=== PATIENT | female | born 1975 | race African-American/Black ===

== ENCOUNTER → 2016-06-11 | Outpatient (CLI) | payer OTHER | END | disposition home or self-care (01) | LOC: CFH 13:21 → EDSTATUS 13:30 | PROVIDERS: ATTEND Family Medicine | DX: R59.1 Generalized enlarged lymph nodes (principal) | CPT/HCPCS: 76536 ==

== ENCOUNTER → 2016-06-29 | Outpatient (CLI) | payer OTHER ==
[~2016-06-29] MED LIST: OMNIPAQUE 350 MG/ML, 100ML BOTTLE ONE
== END | disposition home or self-care (01) ==
LOC: CFH 09:38
PROVIDERS: ATTEND Family Medicine
DX: R59.1 Generalized enlarged lymph nodes (principal); J32.8 Other chronic sinusitis
CPT/HCPCS: 70491; Q9967

== ENCOUNTER → 2016-07-23 | Outpatient (CLI) | payer OTHER | END | disposition home or self-care (01) | LOC: CFH 14:08 | PROVIDERS: ATTEND Family Medicine | DX: Z12.31 Encounter for screening mammogram for malignant neoplasm of breast (principal); R59.1 Generalized enlarged lymph nodes; J84.10 Pulmonary fibrosis, unspecified | CPT/HCPCS: 71020; G0202 ==

== ENCOUNTER → 2017-11-05 | Outpatient (CLI) | payer OTHER | END | disposition home or self-care (01) | LOC: CFH 08:03 | PROVIDERS: ATTEND Family Medicine | DX: Z12.31 Encounter for screening mammogram for malignant neoplasm of breast (principal) | CPT/HCPCS: 77067 ==

== ENCOUNTER 2019-08-23 06:53 | Outpatient (CLI) | payer OTHER ==
[2019-08-23] MEDS ORDERED: OMNIPAQUE 300 MG/ML, 10ML VIAL ONE (07:00)
[2019-08-23] MEDS ORDERED: GADOTERATE 5 MMOL/10 ML VIAL ONE (07:00)
[2019-08-23] MEDS ORDERED: LIDOCAINE-MPF 1%, 5ML ONE (07:25)
[2019-08-23] MEDS ORDERED: ROPivacaine/PF 0.2%, 10 ML ONE (07:57)
== END 2019-08-23 23:59 | disposition home or self-care (01) ==
LOC: RAD 06:53
PROVIDERS: ATTEND Physician Assistant Surgical
DX: M25.851 Other specified joint disorders, right hip (principal)
CPT/HCPCS: 27093; 73525; 73722; A9575; J2795; Q9967

== ENCOUNTER 2019-12-20 08:02 | Outpatient (CLI) | payer OTHER | END 2019-12-20 23:59 | disposition home or self-care (01) | LOC: CFH 08:02 | PROVIDERS: ATTEND Family Medicine | DX: Z12.39 Encounter for other screening for malignant neoplasm of breast (principal); R92.2 Inconclusive mammogram | CPT/HCPCS: 76641; 77063; 77067 ==